=== PATIENT | female | born 1985 | race Caucasian/White ===

== ENCOUNTER 2018-04-22 06:10 | Inpatient (IN) | payer OTHER ==
--- OUTSIDE RECORDS SUMMARY | 2018-04-22 06:14 | XMS REPORT ---
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 Primary Care Physician Unavailable Payers Type Date Identification Numbers Payment Provider Subscriber Commercial Effective: Policy Number: [employer] Ppo Jesús Allen 2012 [id number] Group Number: [id number] [address] PayID: [id number] [place] [address] Problems Description No Active Problems Family History Date Family Member(s) Problem(s) Comments Father Glaucoma Mother A&W First Son A&W First Daughter A&W First Brother A&W Paternal Grandfather A&W Paternal Grandmother Phlebitis Paternal Grandmother Arthritis Maternal Grandfather Diabetes Maternal Grandfather due to Congestive Heart Failure () Maternal Grandmother due to Breast Cancer () Social History Type Date Description Comments Education Highest level completed, Bachelor's Degree Marital Status Lives With Lives With Son Lives With Daughter Pets 1 dog Pets 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 Cigarette Use Never Smoked Cigarettes ETOH Use Denies alcohol use Recreational Drug Use Does Not Use Drugs Smoking Patient has never smoked Daily Caffeine Consumes on average 1 cup of coffee per day Exercise Type/Frequency Exercises regularly Seat Belt/Car Seat Always uses seat belt STD's No STD History Allergies, Adverse Reactions, Alerts Date Description Reaction Status Severity Comments 04/09/2013 NKDA active Medications Medication Date Status Form Strength Qnty SIG Indications Ordering Provider Dha Active Capsules 200mg 100caps 1 po qd Unknown 00 Medications Administered in Office Medication Date Status Form Strength Qnty SIG Indications Ordering Provider PT SCRN Tbco Administered Injection Phaelon Id as Non User 018 MD Jessica Immunizations CPT Code Status Date Vaccine Lot # [id number] Given 05/29/2013 Tetnus, Diptheria Toxoids And Acellular Pertussis, PT > 7Yrs Old Vital Signs Date Vital Result Comment 04/16/2018 BP Systolic 114 mmHg BP Diastolic 76 mmHg Body Temperature 97.7 F Heart Rate 84 /min Respiratory Rate 16 /min Height 66.5 inches 5'6.50" Weight 185.00 lb BMI (Body Mass Index) 29.4 kg/m2 3 Parity 2 10/14/2017 BP Systolic 112 mmHg BP Diastolic 68 mmHg Height 66.5 inches 5'6.50" Weight 160.00 lb BMI (Body Mass Index) 25.4 kg/m2 Last Menstrual Period [id number] 3 Parity 2 07/23/2013 BP Systolic 106 mmHg BP Diastolic 68 mmHg Height 66.5 inches 5'6.50" Weight 164.00 lb BMI (Body Mass Index) 26.1 kg/m2 2 Parity 2 06/25/2013 BP Systolic 102 mmHg BP Diastolic 64 mmHg Body Temperature 98.1 F Height 67 inches 5'7" Weight 171.00 lb BMI (Body Mass Index) 26.8 kg/m2 Last Menstrual Period [id number] del 06/16/13 2 Parity 2 06/16/2013 BP Systolic 118 mmHg BP Diastolic 78 mmHg Body Temperature 98.0 F Heart Rate 80 /min Respiratory Rate 20 /min Height 67 inches 5'7" Weight 184.00 lb BMI (Body Mass Index) 28.8 kg/m2 Last Menstrual Period 5321636 2 Parity 1 04/09/2013 BP Systolic 106 mmHg BP Diastolic 70 mmHg Height 66.5 inches 5'6.50" Weight 170.00 lb BMI (Body Mass Index) 27.0 kg/m2 Last Menstrual Period 6076618 2 Parity 1 Results Test Date Test Result H/L Range Note Laboratory test 03/28/2018 Genital For GRP B SEE RESULT BELOW 1 finding Strep Only Laboratory test 01/27/2018 Glucose 1 HR Post 121 mg/dL 70-160 2 finding Prandial CBC With No Diff 01/27/2018 White Blood Count 11.2 10^3/uL High 3.5-10.8 Red Blood Count 3.81 10^6/uL Low 4.00-5.40 Hemoglobin 12.6 g/dL 12.0-16.0 Hematocrit 36 % 35-47 Mean Corpuscular Volume 95 fL 80-97 Mean Corpuscular Hemoglobin 33 pg High 27-31 Mean Corpuscular HGB Conc 35 g/dL 31-36 Red Cell Distribution Width 14 % 10.5-15 Platelet Count 313 10^3/uL 150-450 Mean Platelet Volume 9.4 um3 7.4-10.4 PNL No Urine 11/14/2017 Rubella Screen Immune Immune 3 Hemoglobin A1c 5.4 % 4.0-5.6 4 Hepatitis B Surface Ag Nonreactive Nonreactive 5 Syphillis Igg W/Reflex RPR Nonreactive Nonreactive 6 CBC With No Diff 11/14/2017 White Blood Count 11.1 10^3/uL High 3.5-10.8 Red Blood Count 4.21 10^6/uL 4.0-5.4 Hemoglobin 13.1 g/dL 12.0-16.0 Hematocrit 39 % 35-47 Mean Corpuscular Volume 93 fL 80-97 Mean Corpuscular Hemoglobin 31 pg 27-31 Mean Corpuscular HGB Conc 33 g/dL 31-36 Red Cell Distribution Width 14 % 10.5-15 Platelet Count 316 10^3/uL 150-450 Mean Platelet Volume 9.0 um3 7.4-10.4 Type And Screen 11/14/2017 Patient Blood Type A Positive Antibody Screen NEGATIVE HIV 1/2 AB Evaluation 11/14/2017 HIV 1 2 Antibody Nonreactive Nonreactive 7 Lead 11/14/2017 Lead,Venous, B < 1.0 g/dL 0.0-4.9 8 Submitting Laboratory Phone [phone] Parvovirus B19 Igg & Igm 11/14/2017 Parvovirus (B19) IgG Negative Negative Antibody Parvovirus (B19) IgM Antibody Negative Negative Parvovirus Interpretation See Comment 10 Urine Drug Comp 20 Test 11/14/2017 Urine Amphetamine Negative ng/mL 11 Urine Barbiturates Negative ng/mL 12 Urine Benzodiazepines Negative ng/mL 13 Urine Cocaine Negative ng/mL 14 Urine Phencyclidine Negative ng/mL Cutoff: 25 Urine Tetrahydrocannabinol Negative ng/mL Cutoff: 50 15 Creatinine, Urine 116.0 mg/dL Specific Prospect 1.016 pH 5.4 Oxidants Negative 16 Adulterants Comment Normal Codeine, Ur Not Detected ng/mL Cutoff: 25 17 Ueuxihe-2-txwa-glucuronide, Ur Not Detected ng/mL 18 Morphine, Ur Not Detected ng/mL Cutoff: 25 19 Ahngrvom-7-grhd-glucuronide, U Not Detected ng/mL 20 6-monoacetylmorphine, Ur Not Detected ng/mL Cutoff: 25 21 Hydrocodone, Ur Not Detected ng/mL Cutoff: 25 22 Norhydrocodone, Ur Not Detected ng/mL Cutoff: 25 23 Dihydrocodeine, Ur Not Detected ng/mL Cutoff: 25 24 Hydromorphone, Ur Not Detected ng/mL Cutoff: 25 25 Risaffidnkqdo1jounmevtsvfpiln Not Detected ng/mL 26 Oxycodone, Ur Not Detected ng/mL Cutoff: 25 27 Noroxycodone, Ur Not Detected ng/mL Cutoff: 25 28 Oxymorphone, Ur Not Detected ng/mL Cutoff: 25 29 Jngpicybyqx-7-jvqj-glucuronide Not Detected ng/mL 30 Noroxymorphone, Ur Not Detected ng/mL Cutoff: 25 31 Fentanyl, Ur Not Detected ng/mL Cutoff: 2 32 Norfentanyl, Ur Not Detected ng/mL Cutoff: 2 33 Meperidine, Ur Not Detected ng/mL Cutoff: 25 34 Normeperidine, Ur Not Detected ng/mL Cutoff: 25 35 Naloxone, Ur Not Detected ng/mL Cutoff: 25 36 Liopsjmp-6-zzsi-glucuronide, U Not Detected ng/mL 37 Methadone, Ur Not Detected ng/mL Cutoff: 25 38 Eddp, Ur Not Detected ng/mL Cutoff: 25 39 Propoxyphene, Ur Not Detected ng/mL Cutoff: 25 40 Norpropoxyphene, Ur Not Detected ng/mL Cutoff: 25 41 Tramadol, Ur Not Detected ng/mL Cutoff: 25 42 O-desmethyltramadol, Ur Not Detected ng/mL Cutoff: 25 43 Tapentadol, Ur Not Detected ng/mL Cutoff: 25 44 N-desmethyltapentadol, Ur Not Detected ng/mL Cutoff: 50 45 Igqxtlaneu-gxwo-jtvncpffnlp, U Not Detected ng/mL 46 Buprenorphine, Ur Not Detected ng/mL Cutoff: 5 47 Norbuprenorphine, Ur Not Detected ng/mL Cutoff: 5 48 Norbuprenorphine glucuronide Not Detected ng/mL Cutoff: 20 49 Opioid Interpretation See Comment 50 GC/Chlamydia Dna Probe 10/14/2017 Chlamydia trachomatis Rna Negative Negative Neisseria gonorrhoeae (GC) Rna Negative Negative Urine Culture And 10/14/2017 Urine Culture SEE RESULT BELOW 51 Sensitivities Laboratory test finding 05/21/2013 Group B Strep Culture (SEE NOTE) 52 Screen GC/Chlamydia Dna Probe 04/09/2013 GC/Chlamydia Rna (SEE NOTE) 53 1 SEE RESULT BELOW Name: JENNIFER ALLEN : [address]: Virgil Hercules MD Acct: [id number] Unit: [id number] AGE: 32 Location: [facility] Re03/28/18 SEX: F Status: REG REF SPEC: [id number] JESSI: 03/28/18-110[address] [facility] [address]: Virgil Hercules MD REQ: [id number] RECD: 03/28/18 STATUS: COMP _ SOURCE: CER/VAG/RE SPDESC: ORDERED: Grp B Strp Scrn COMMENTS: [id number] QUERIES: Is Patient Penicillin Allergic? N Is patient penicillin allergic and/or sensitivities needed? N Provider Requisition # [id number]_ Procedure Result Reported Site Group B Strep Culture Screen Final 03/30/18- 1108 ML Group B Strep Screen Negative * ML - Main Lab . END OF REPORT DEPARTMENT OF PATHOLOGY, [address] [place] [address] Dario Groves M.D. Director [facility] # [id number] 2 [id number] 4 Therapeutic target for the treatment of diabetes mellitus patients is <7% HBA1C, and in selective patients <6.0%. Please refer to [place] [employer] diabetic care guidelines for further information. 5 [id number] 6 Warning: A positive result is not useful for establishing a diagnosis of syphilis. In most situations, such a result may reflect a prior treated infection; a negative result can exclude a diagnosis of syphilis except for incubating or early primary disease. 7 It is recognized that currently available assays for the detection of antibodies to HIV-1 and/or HIV-2 may not detect all infected individuals. HIV antibodies may be undetectable in some stages of the infection and in some clinical conditions. The performance of this assay has not been established for populations of infants or children. Assayed by Chemiluminescence Microparticle Immunoassay on the Siemens Advia Centaur CP. Values obtained with different methods or kits cannot be used interchangeably.The diagnostic specificity of the ADVIA Centaur 1/O/2 Enhanced assay in the low risk population was 99.90% (6052/6058) with a 95% confidence interval of 99.78 to 99.96%. 8 ADDITIONAL INFORMATION Testing performed by Inductively Coupled Plasma-Mass Spectrometry (ICP-MS). This test was developed and its performance characteristics determined by [facility] in a manner consistent with CLIA requirements. This test has not been cleared or approved by the U.S. Food and Drug Administration. 9 Test Performed by: [facility] [place] [address] 10 No antibody to Parvovirus B19 detected. Acute infection cannot be ruled out as antibody levels may be below the limit of detection. If clinically indicated, a second serum should be submitted in 14-21 days. ADDITIONAL INFORMATION This test has been modified from the commercial loan underwriter's instructions. Its performance characteristics were determined by [facility] in a manner consistent with CLIA requirements. This test has not been cleared or approved by the U.S. Food and Drug Administration. Test Performed by: [facility] - [address] [address] 11 REFERENCE VALUE Cutoff: 500 12 REFERENCE VALUE Cutoff: 200 13 REFERENCE VALUE Cutoff: 100 14 REFERENCE VALUE Cutoff: 150 15 ADDITIONAL INFORMATION This report is intended for use in clinical monitoring or management of patients. It is not intended for use in employment-related testing. 16 REFERENCE VALUE Cutoff: 200 mg/L 17 Tylenol 3 18 Metabolite of codeine REFERENCE VALUE Cutoff: 100 19 Sonia Romero, MS Contin; Also a minor metabolite (10%) of codeine and can be seen in low concentrations (<2,000 ng/mL) with poppy seed ingestion. 20 Metabolite of morphine REFERENCE VALUE Cutoff: 100 21 Metabolite of heroin 22 Lortab, Edelstein, Vicodin; Also a very minor metabolite of codeine and impurity (<1%) of oxycodone. 23 Metabolite of hydrocodone 24 Metabolite of hydrocodone 25 Dilaudid, Exalgo; Also a metabolite of hydrocodone and a minor (<5%) metabolite of morphine. 26 Metabolite of hydromorphone REFERENCE VALUE Cutoff: 100 27 Endocet, Percocet, Oxycontin 28 Metabolite of oxycodone 29 Numorphan, Opana; Also a metabolite of oxycodone. 30 Metabolite of oxymorphone REFERENCE VALUE Cutoff: 100 31 Metabolite of oxymorphone 32 Actiq, Duragesic, Fentora 33 Metabolite of fentanyl 34 Demerol 35 Metabolite of meperidine 36 Narcan 37 Metabolite of naloxone REFERENCE VALUE Cutoff: 100 38 Dolophine 39 Metabolite of methadone 40 Darvon, Darvocet 41 Metabolite of propoxyphene 42 Tradol, Ultram, Ultracet 43 Metabolite of tramadol 44 Nucynta 45 Metabolite of tapentadol 46 Metabolite of tapentadol REFERENCE VALUE Cutoff: 100 47 Buprenex, Suboxone 48 Metabolite of buprenorphine 49 Metabolite of buprenorphine 50 No opioids were detected. The absence of expected drug(s) and/or drug metabolite(s) may indicate non-compliance, altered pharmacokinetics, inappropriate timing of specimen collection relative to drug administration, diluted/adulterated urine, or limitations of testing. ADDITIONAL INFORMATION This test was developed and its performance characteristics determined by [facility] in a manner consistent with CLIA requirements. This test has not been cleared or approved by the U.S. Food and Drug Administration. Test Performed by: [id number] - [facility] [address] [place] [address] 51 SEE RESULT BELOW Name: JENNIFER ALLEN : [address]: Sharmin Nagel [facility] Acct: [id number] Unit: [id number] AGE: 31 Location: [facility] Re10/14/17 SEX: F Status: REG REF SPEC: [id number] JESSI: 10/14/17-[address]: Sharmin Nagel [facility] REQ: [id number] RECD: 10/14/17 STATUS: COMP _ SOURCE: URINE SPDESC: ORDERED: Urine Culture COMMENTS: [id number] Urine Source: Random Procedure Result Reported Site Urine Culture Final 10/16/17- 0825 ML No growth of clinically significant organisms * - [facility] . END OF REPORT DEPARTMENT OF PATHOLOGY, [facility] [employer] [place], [place] [address] Dario Groves M.D. Director [facility] # [id number] RUN DATE: 05/23/13 [facility] LAB LIVE PAGE 1 RUN TIME: 1114 [facility] [employer] [place], [place] [address] Specimen Inquiry Name: JENNIFER ALLEN : [address]: Christi Lopez MD Acct: [id number] Unit: [id number] AGE: 27 Location: [facility] Re05/21/13 SEX: F Status: REG REF SPEC: [id number] JESSI: 05/21/[address]: Christi Lopez MD REQ: [id number] RECD: 05/21/13 STATUS: COMP _ SOURCE: CER/VAG/RE SPDESC: ORDERED: Grp B Strp Scrn QUERIES: Is Patient Penicillin Allergic? N Medent Number [id number] Procedure Result Verified Site Group B Strep Culture Screen Final 05/23/13- 1114 ML Group B Strep Screen Negative END OF REPORT * ML=Testing performed at Main Lab DEPARTMENT OF PATHOLOGY, [address] [place] [address] Dario Groves M.D. Director [facility] Permit #[id number] 53 RUN DATE: 04/10/13 [facility] LAB LIVE PAGE 1 RUN TIME: [address] [place] [address] Specimen Inquiry Name: JENNIFER ALLEN : [address]: Sharmin Nagel CNM Acct: [id number] Unit: [id number] AGE: 27 Location: [facility] Re04/09/13 SEX: F Status: REG REF SPEC: [id number] JESSI: 04/09/13-[address] [facility] [address]: Sharmin Nagel [facility] REQ: [id number] RECD: 04/09/13 STATUS: COMP _ SOURCE: URINE SPDESC: ORDERED: GC/Chlam RNA QUERIES: Medent Number [id number] Procedure Result Verified Site Chlamydia Trachomatis RNA Final 04/10/13- 1416 ML NEGATIVE for Chlamydia trachomatis rRNA GC (N. gonorrhoeae) RNA Final 04/10/13- 1408 ML NEGATIVE for Neisseria gonorrhoeae rRNA A negative result does not preclude the presence of a C. trachomatis or N. gonorrhoeae infection because results are dependent on adequate specimen collection, absence of inhibitors, and sufficient rRNA to be detected. Test results may be affected by improper specimen collection, improper storage, technical error, or specimen mixup. Limitations of the Procedure: The Aptima Combo 2 Assay is not intended for the evaluation of suspected sexual abuse or for other medico-legal indications. For those patients for whom a false positive result may have adverse psychosocial impact, the [facility] recommends retesting by a method using an alternate technology. Therapeutic failure or success cannot be determined with the Aptima Combo 2 Assay since nucleic acid may persist following appropriate antimicrobial therapy. Results from the Aptima Combo 2 Assay should be interpreted in conjunction with other laboratory and clinical data available to the clinican. CONTINUED ON NEXT PAGE * ML=Testing performed at Main Lab DEPARTMENT OF PATHOLOGY, [facility] [employer] [place], [place] [address] Dario Groves M.D. Director [facility] Permit #[id number] RUN DATE: 04/10/13 [facility] LAB LIVE PAGE 2 RUN TIME: [address] [place] [address] Specimen Inquiry Patient: JENNIFER ALLEN [id number] (Continued) Specimen: [id number] Collected: 04/09/13 Received: 04/09/13 (Continued) Procedure Result Verified Site GC (N. gonorrhoeae) RNA Final (continued) 04/10/13- 1408 Performance characteristics for detecting C. trachomatis and N. gonorrhoeae are derived from high prevalence populations. Positive results in low prevalence populations should be interpreted carefully with the understanding that the likelihood of a false positive may be higher than a true positive. END OF REPORT * ML=Testing performed at Main Lab DEPARTMENT OF PATHOLOGY, [address] [place] [address] Dario Groves M.D. Director [facility] Permit #[id number] Procedures Date CPT Code Description Status 03/28/2018 78481 Echography Uterus Limited Completed 12/16/2017 08817 Echography Uterus Complete Completed 06/16/2013 82442 Delivery Only Completed 06/16/2013 94133 Delivery Routine Completed 06/16/2013 12689 Non-Stress Test Completed Encounters Type Date Location Provider CPT E/M Dx Office Visit 04/16/2018 3:30p [facility] [place] [address] Z01.818 O34.211 Office Visit 05/21/2013 11:00a [facility] [place] [address] 654.23 Plan of Care Future Appointment(s):04/22/2018 7:45 am - Virgil Hercules M.D. at [facility] R0 7:45 am - Christi Lopez MD at [facility] R1 1:30 pm - Christi Lopez MD at [facility] Ohnezu9304/29/2018 1:20 pm - Noelle Nagel CNM at [facility]07/2013 - Jamila Amaral MDV72.83 Examination Preoperative Other Nzvy762.23 Delivery Previous Antepartum Cond Or TcssrJ79.83 Examination Preoperative Other Yyqu103.23 Delivery Previous Antepartum Cond Or Compl
[2018-04-22] MEDS ORDERED: Sodium Citrate/Citric Acid* 15 ML UDC PO ONE (06:30)
[2018-04-22] MEDS ORDERED: ceFOXitin 2 GM IVPREMIX* 2 GM/50 ML BAG IVPB ONE (06:30)
[2018-04-22] MEDS ORDERED: Morphine PF AMP (0.5MG/ML)* 5 MG/10 ML AMP ONE (07:55)
[2018-04-22] MEDS ORDERED: Lidocaine 1%* 5 ML VIAL ONE ×2 (08:02)
[2018-04-22] MEDS ORDERED: OXYTOCIN* 10 UNITS/ML 1 ML VIAL ONE (08:39)
[2018-04-22] MEDS ORDERED: Bupivacaine-MPF SPINAL* 7.5 MG/ML - 2ML AMP ONE (08:40)
[2018-04-22] MEDS ORDERED: EPHEDrine (Pressors)* 50 MG/ML VIAL ONE (08:40)
[2018-04-22] MEDS ORDERED: Naloxone* 0.4 MG/ML 1 ML VIAL IV PRN ×2 (08:43)
[2018-04-22] MEDS ORDERED: HYDROmorphone INJ1* 1 MG/ML SYRINGE IV PRN (08:43)
[2018-04-22] MEDS ORDERED: Nalbuphine* 10 MG/ML 1 ML VIAL IV PRN (08:43)
[2018-04-22] MEDS ORDERED: HYDROcodone/ACETAMIN 5-325 MG* 1 TAB PO PRN (08:43)
[2018-04-22] MEDS ORDERED: Ondansetron INJ* 2 MG/ML VIAL IV PRN ×2 (08:43)
[2018-04-22] MEDS ORDERED: oxyCODONE/Acetamin 5/325 MG* TAB PO PRN (08:43)
[2018-04-22] MEDS ORDERED: Acetaminophen TAB* 325 MG PO PRN (08:43)
[2018-04-22] MEDS ORDERED: Ketorolac INJ* 30 MG/ML 1 ML VIAL IV PRN (08:43)
[2018-04-22] MEDS ORDERED: Witch Hazel PAD* JAR TOPICAL PRN (09:34)
[2018-04-22] MEDS ORDERED: Ketorolac INJ* 30 MG/ML 1 ML VIAL ONE (09:53)
[2018-04-22] MEDS ORDERED: HYDROmorphone INJ* 0.5 MG/0.5 ML SYRINGE IV PRN (10:00)
[2018-04-22] MEDS: Simethicone TAB* 80 MG TAB.CHEW PO SCH ×3 (14:27→19:48)
[2018-04-22] MEDS: Docusate CAP* 100 MG PO SCH ×2 (14:27→19:48)
[2018-04-22] MEDS: Ibuprofen TAB* 600 MG PO SCH ×2 (16:38→21:00)
[2018-04-23] MEDS: Ibuprofen TAB* 600 MG PO SCH ×6 (00:14→22:50)
[2018-04-23] MEDS ORDERED: oxyCODONE/Acetamin 5/325 MG* TAB PO PRN (00:15)
[2018-04-23] MEDS: oxyCODONE/Acetamin 5/325 MG* TAB PO PRN ×5 (03:53→21:34)
[2018-04-23 06:38] LABS: ABS Basophils 0 10^3/ul (0-0.2); ABS Eosinophils 0.2 10^3/ul (0-0.6); ABS Lymphocytes 1.6 10^3/ul (1.0-4.8); ABS Monocytes 1.1 10^3/ul (0-0.8); ABS Neutrophils 11.1 10^3/ul (1.5-7.7); ABS Nucleated RBC 0 10^3/ul; Eosinophil % 1.6 % (0-6); Hematocrit 34 % (35-47); Hemoglobin 11.5 g/dl (12.0-16.0); Lymphocyte % 11.1 % (25-47); Mean Corpuscular HGB Conc 34 g/dl (31-36); Mean Corpuscular Hemoglobin 31 pg (27-31); Mean Corpuscular Volume 92 fL (80-97); Mean Platelet Volume 9.5 um3 (7.4-10.4); Nucleated Red Blood Cells % 0.1; Platelet Count 263 10^3/ul (150-450); Red Blood Count 3.74 10^6/ul (4.00-5.40); Red Cell Distribution Width 14 % (10.5-15)
[2018-04-23] MEDS: Docusate CAP* 100 MG PO SCH ×3 (08:16→19:54)
[2018-04-23] MEDS: Simethicone TAB* 80 MG TAB.CHEW PO SCH ×4 (08:17→21:33)
[2018-04-23] MEDS ORDERED: Ferrous Gluconate TAB* 324 MG TAB PO SCH (09:00)
[2018-04-23] MEDS ORDERED: Tetan/Diph/Pertus SYR(Tdap)* 0.5 ML SYR(BOOSTRIX) use SYR IM ONE (12:00)
[2018-04-24] MEDS: oxyCODONE/Acetamin 5/325 MG* TAB PO PRN ×4 (01:58→20:58)
[2018-04-24] MEDS: Ibuprofen TAB* 600 MG PO SCH ×5 (01:58→20:58)
[2018-04-24] MEDS: Docusate CAP* 100 MG PO SCH ×3 (08:43→20:58)
[2018-04-24] MEDS: Simethicone TAB* 80 MG TAB.CHEW PO SCH ×3 (08:44→20:58)
--- NOTE | 2018-04-24 16:23 | OP ---
DATE OF OPERATION: 04/22/18 - ROOM #115 DATE OF : [birth year] SURGEON: Christi Lopez MD ASSISTANTS: Dr. Hercules and Lidia Solo CNM. ANESTHESIOLOGIST: Dr. Tijerina. ANESTHESIA: Spinal. PRE-OP DIAGNOSES: History of section x2 and 39 plus 5 weeks' gestation. POST-OP DIAGNOSES: History of section x2 and 39 plus 5 weeks' gestation. OPERATIVE PROCEDURE: Repeat low-transverse section. INDICATIONS: This patient was a 32-year-old 3, para 2, who presents today for scheduled repeat section. The patient had a history of 2 previous C-sections and desired repeat for delivery. She was extensively counseled and consent was signed. ESTIMATED BLOOD LOSS: 700 cc. URINE OUTPUT: 400 cc. IV FLUIDS: 2800 cc lactated Ringer's. FINDINGS: Normal-appearing uterus, fallopian tubes, and ovaries. Lower uterine segment was very thin. Delivery was productive of a female weighting 7 pounds 11 ounces with Apgars of 9 and 9. Time of delivery was 0837. COMPLICATIONS: None. DESCRIPTION OF PROCEDURE: The risks, benefits, and alternatives were described to the patient, and informed consent was obtained. The patient was taken to the operating room with IV running, where spinal anesthesia was induced and found to be adequate. The patient was prepped and draped in the normal sterile fashion in the dorsal supine position with a leftward tilt. A Pfannenstiel skin incision was made with a scalpel through the patient's previous incision. This was carried down to the underlying fascia using the scalpel. The fascia was scored in the midline, and the incision was extended using Nicholson scissors. The fascia was dissected off the underlying rectus muscles using blunt and sharp dissection. The rectus muscles were in the midline using dissection with a Tataina clamp. There was some dense scar tissue present from the prior surgeries. The peritoneum was then entered bluntly. A bladder blade was placed. A bladder flap was created sharply using Metzenbaum scissors. A low transverse uterine incision was then made with the scalpel. This was carried down to the amniotic membranes. The membranes were then ruptured, productive of clear fluid. The uterine incision was extended using blunt traction. The head was elevated to the level of the incision, and, with fundal pressure, the head delivered without difficulty. The shoulders then were also both delivered and the body followed. The had excellent tone and cried immediately on delivery. The cord was doubly clamped and cut. The was then handed to the awaiting imposer. Cord blood was collected. The placenta was delivered with manual extraction. The uterus was then exteriorized and cleared of all clots and debris. The uterine incision was then reapproximated using 0 Polysorb in a running-locked fashion. The lower uterine segment, especially the area below the incision, was extremely thin. Due to the high likelihood of the tissue tearing, a second layer was not placed as there was already very good hemostasis. The posterior cul-de-sac was irrigated with saline. The uterus was then returned to the abdomen. The incision was reinspected and still noted to be hemostatic. The peritoneum was closed with 3-0 Vicryl in a running fashion. The fascia was closed with 0 Polysorb in a running fashion. The subcutaneous tissues were copiously irrigated and made hemostatic using the Bovie. The subcutaneous tissues were then reapproximated using 3-0 Vicryl in interrupted sutures. The skin was then closed with 4-0 Monocryl in a subcuticular stitch. Mastisol and steristrips were then applied. A sterile bandage was then placed over the incision. The patient tolerated the procedure well. Sponge, lap, and needle counts were correct x2. [id number]/[facility] #: [id number] [facility]
[2018-04-25] MEDS: Ibuprofen TAB* 600 MG PO SCH ×2 (04:53→12:02)
[2018-04-25] MEDS: oxyCODONE/Acetamin 5/325 MG* TAB PO PRN ×2 (04:53→12:03)
[2018-04-25 07:38] VITALS: BP 96/57
[2018-04-25] MEDS: Simethicone TAB* 80 MG TAB.CHEW PO SCH (08:48)
[2018-04-25] MEDS: Docusate CAP* 100 MG PO SCH (08:48)
== END 2018-04-25 13:40 | disposition home or self-care (01) | DRG 766 ==
LOC: MCHOB 06:10
PROVIDERS: ADMIT Obstetrics & Gynecology; ATTEND Obstetrics & Gynecology
PROC: 10D00Z1 Extraction of Products of Conception, Low, Open Approach (ICD-10-PCS; 2018-04-22)
PROC: 4A0HXCZ Measurement of Products of Conception, Cardiac Rate, External Approach (ICD-10-PCS; principal; 2018-04-22 07:45)
DX: O34.211 Maternal care for low transverse scar from previous cesarean delivery (principal); O69.81X0 Labor and delivery complicated by cord around neck, without compression, not applicable or unspecified; Z3A.39 39 weeks gestation of pregnancy; Z37.0 Single live birth
CPT/HCPCS: 36415; 85025; A9270-GY; J0694; J1885; J2300; J2590